=== PATIENT | female | born 1975 | race Caucasian/White ===

== ENCOUNTER 2024-08-11 20:38 | Emergency (ER) | payer SELFPAY ==
[2024-08-11 20:47] VITALS: BP 127/71; PULSE 69; RESP 17; TEMP 97.2; BMI 20.2
[2024-08-11 21:10] LABS: HEMATOCRIT 41.5 % (32.4-45.2); HEMOGLOBIN 13.7 G/dL (10.7-15.3); MCH 31.9 pg (25.7-33.7); MEAN CELL VOLUME 96.8 fl (80-96); MEAN PLT VOLUME 8.5 fl (7.5-11.1); PLATELET COUNT 294.7 10^3/uL (134-434); RBC 4.29 10^6/uL (3.60-5.2); RDW 13.4 % (11.6-15.6); WHITE BLOOD COUNT 7.4 10^3/uL (4.0-10.8)
[2024-08-11] MEDS ORDERED: KETOROLAC TROMETHAMINE 30 MG/1 ML VIAL ONE (21:16)
[2024-08-11] MEDS: KETOROLAC TROMETHAMINE 30 MG/1 ML VIAL IVPUSH ONE (21:27)
[2024-08-11] MEDS: SODIUM CHLORIDE 1,000 ML IV ONE (21:31)
[2024-08-11 21:33] LABS: ALBUMIN 4.6 g/dl (3.4-5.0); BILIRUBIN,TOTAL 0.3 mg/dl (0.2-1); CALCIUM 9.7 mg/dl (8.5-10.1); CREATININE 0.8 mg/dl (0.6-1.3)
[2024-08-12] MEDS: TOBRA 0.3%/DEXAMETH 0.1% OPHTHALMIC SUSP 2.5 ML BTL OD STA (00:39)
== END 2024-08-12 00:41 | disposition home or self-care (01) ==
LOC: FER 20:38
PROC: 3E0333Z Introduction of Anti-inflammatory into Peripheral Vein, Percutaneous Approach (ICD-10-PCS; principal; 2024-08-11)
PROC: 3E0337Z Introduction of Electrolytic and Water Balance Substance into Peripheral Vein, Percutaneous Approach (ICD-10-PCS; 2024-08-11)
DX: R10.32 Left lower quadrant pain (principal); H00.022 Hordeolum internum right lower eyelid; R11.0 Nausea
CPT/HCPCS: 36415; 74176-TC; 80053; 81003; 81025; 85027; 99284-25